=== PATIENT | female | born 1960 ===

== ENCOUNTER → 2022-05-18 | Outpatient (RCR) | payer BC | LOC: PT 05-01 12:48 | PROVIDERS: ATTEND Internal Medicine | DX: M75.102 Unspecified rotator cuff tear or rupture of left shoulder, not specified as traumatic (principal) ==

== ENCOUNTER 2022-05-21 07:29 | Outpatient (RCR) | payer BC | END 2022-06-17 | LOC: PT 07:29 | PROVIDERS: ATTEND Internal Medicine | DX: M75.102 Unspecified rotator cuff tear or rupture of left shoulder, not specified as traumatic (principal) ==